=== PATIENT | female | born 1995 | race Two or more races ===

== ENCOUNTER 2021-07-10 08:08 | Outpatient (CLI) | payer OTHER | END 2021-07-10 08:23 | disposition home or self-care (01) | LOC: RX STUDY 08:08 | DX: N91.2 Amenorrhea, unspecified (principal); N93.9 Abnormal uterine and vaginal bleeding, unspecified; Q50.6 Other congenital malformations of fallopian tube and broad ligament ==

== ENCOUNTER 2023-01-29 08:25 | Outpatient (CLI) | payer OTHER | END 2023-01-29 08:33 | disposition home or self-care (01) | LOC: RX STUDY 08:25 | PROVIDERS: ATTEND Obstetrics & Gynecology Reproductive Endocrinology | DX: N93.9 Abnormal uterine and vaginal bleeding, unspecified (principal); Q50.6 Other congenital malformations of fallopian tube and broad ligament ==